=== PATIENT | male | born 1975 | race Caucasian/White ===

== ENCOUNTER 2018-07-01 07:24 | Day surgery (SDC) | payer SELFPAY ==
[2018-06-25 09:11] VITALS: BMI 23.4
[2018-07-01] MEDS ORDERED: Lidocaine PF 2% (5 ml) Inj (For Cardiac Arrhy) ONE ×3 (07:48→09:56)
[2018-07-01 07:57] LABS: BASO # 0.07 K/mm3 (0.0-2.0); BASO % 0.9 % (0.0-3.0); EOS # 0.2 (0.0-0.7); GRAN # 4.59 (1.4-6.5); GRAN % 62.3 % (50.0-68.0); HEMOGLOBIN 8.3 g/dL (14.0-18.0); LYMPH # 1.4 (1.2-3.4); LYMPH % 19.3 % (22.0-35.0); MEAN CELL VOLUME 81.8 fl (80.0-105.0); MEAN CORPUSCULAR HEMOGLOBIN 26.4 pg (25.0-35.0); MEAN CORPUSCULAR HGB CONC 32.3 g/dl (31.0-37.0); MONO # 1.1 (0.1-0.6); MONO % 15.5 % (1.0-6.0); RBC 3.14 10^6/uL (3.5-6.1); RED CELL DISTRIBUTION WIDTH 17.6 % (11.5-14.5); WHITE BLOOD COUNT 7.4 10^3/ul (4.5-11.0)
[2018-07-01 08:06] LABS: INR 1.45; PARTIAL THROMBOPLASTIN TIME 31.4 Seconds (25.1-36.5); PROTHROMBIN TIME 16.8 SECONDS (9.4-12.5)
[2018-07-01 08:07] LABS: BLOOD UREA NITROGEN 9 mg/dL (7-21); CALCIUM 10.5 mg/dL (8.4-10.5); GFR NON-AFRICAN AMERICAN > 60
[2018-07-01] MEDS ORDERED: Midazolam 2 MG/2 ML VIAL ONE ×3 (09:21→10:34)
[2018-07-01] MEDS ORDERED: Lidocaine 1% 5ml Abboject ONE (10:45)
[2018-07-01] MEDS ORDERED: Midazolam 2 MG/2 ML VIAL IVP ONE (11:14)
[2018-07-01 12:28] VITALS: RESP 20; TEMP 98.3
[2018-07-01] MEDS ORDERED: Oxycodone/Acetaminophen 5/325 mg Tab PO PRN (12:59)
[2018-07-01] MEDS ORDERED: Sodium Chloride 0.45% 1,000 ML IV SCH (13:00)
[2018-07-01 13:54] VITALS: BP 118/71; PULSE 95; O2SAT 99
--- NOTE | 2018-07-01 17:04 | CT ---
PROCEDURE: CT guided liver biopsy. HISTORY: Gastroesophageal junction adenocarcinoma. Liver Mets. PHYSICIAN(S): Christ Milan MD. TECHNIQUE: The relative risks and indications of the procedure were explained to the patient and his and consent obtained. The patient was placed supine on the CT scanner and preliminary images through the liver obtained. Conscious sedation and monitoring were provided throughout the procedure by a nurse. There are multiple low-attenuation lesions in both lobes liver. 4 cm lesion in the lateral segment of the left lobe was selected for biopsy. A subxyphoid approach was selected and the area prepped and draped in the usual sterile fashion. 1% Xylocaine was used to anesthetize the skin and soft tissues. A 17-gauge guiding needle was advanced into the 4 cm left lobe liver lesion. Its position was confirmed with CT. Using coaxial technique, multiple core biopsies were obtained. The postprocedure images show no evidence of significant hemorrhage. IMPRESSION: 1. CT-guided liver biopsy as described above.
--- NOTE | 2018-07-01 17:06 | VASCULAR ---
PROCEDURE: Ultrasound and fluoroscopic right internal jugular venous access port. CLINICAL HISTORY: Metastatic adenocarcinoma gastroesophageal junction.Venous port for chemotherapy. PHYSICIAN(S): Christ Milan M.D. TECHNIQUE: The relative risks and indications of the procedure were explained to the patient and his and consent obtained. The patient was placed supine on the arteriogram table and the neck and chest prepped and draped in the usual sterile fashion. Conscious sedation monitoring was provided throughout the procedure by a nurse. Antibiotics were given prior to the procedure. Under direct ultrasound guidance, the right internal jugular vein was punctured with a micro-puncture set. A 0.035 angled Glidewire was advanced into the IVC. A 4 cm incision was made below the right clavicle and the pocket blunted dissected. A 8 Irish single-lumen catheter, 20 cm long, was advanced to the SVC/RA junction. The catheter was trimmed and attached to the port. The port aspirates and injects easily. The port was placed in the pocket and closed in 2 layers. The patient tolerated the procedure well. IMPRESSION: Ultrasound and fluoroscopically placed right internal jugular venous access port.
== END 2018-07-01 15:50 | disposition home or self-care (01) ==
LOC: SDS 07:24
PROVIDERS: ATTEND Radiology Vascular & Interventional Radiology
DX: Z45.2 Encounter for adjustment and management of vascular access device (principal); C78.7 Secondary malignant neoplasm of liver and intrahepatic bile duct; C16.0 Malignant neoplasm of cardia; I73.9 Peripheral vascular disease, unspecified; F17.200 Nicotine dependence, unspecified, uncomplicated
CPT/HCPCS: 36415; 36561; 47000; 76937; 77001; 77012; 80048; 85025; 85610; 85730; 88307; 99152; C1769; C1788; J0690; J1644; J2250; J2405; J3010; J7030; J7120

== ENCOUNTER 2018-07-08 15:24 | Observation (INO) | payer SELFPAY ==
[2018-07-08 15:38] VITALS: BMI 24.1
--- NOTE | 2018-07-08 15:40 | ED PDOC ---
Arrival/HPI - General Time Seen by Provider: 07/08/18 15:36 Historian: Patient - History of Present Illness Narrative History of Present Illness (Text): 43yo male, with history of gastric cancer, currently undergoing chemotherapy, comes to Emergency room from chemotherapy as he was feeling lightheaded and generalized weakness. Patient states for the past couple days, he has been feeling exhausted, lightheaded and weak. Patient states he was notified b his PMD that his RBC count was low as well. Otherwise, he denies any bleeding, chest pain, shortness of breath or abdominal pain. Symptom Onset: Gradual Past Medical History - Provider Review Nursing Documentation Reviewed: Yes - Cardiac Hx Pacemaker: No - Neurological Hx Paralysis: No - Hematological/Oncological Hx Blood Transfusions: No - Musculoskeletal/Rheumatological Hx Musculoskeletal Disorders: No - Psychiatric Hx Emotional Abuse: No Hx Physical Abuse: No Hx Substance Use: No - Anesthesia Hx Anesthesia Reactions: No Hx Malignant Hyperthermia: No - Suicidal Assessment Feels Threatened In Home Enviroment: No Family/Social History - Physician Review Nursing Documentation Reviewed: Yes Family/Social History: No Known Family HX Hx Alcohol Use: Yes (SOCIAL) Hx Substance Use: No Allergies/Home Meds Allergies/Adverse Reactions: Allergies GLUE USED WITH PICC LINE Adverse Reaction (Uncoded 07/01/18 08:04) SWELLING BLISTER FORMED Home Medications: Home Meds Medication Instructions Recorded Confirmed Aspirin [Ecotrin] 81 mg PO DAILY 06/25/18 06/25/18 Fondaparinux Sodium [Arixtra] 7.5 mg SQ DAILY 06/25/18 06/25/18 Multivitamin [Daily Castillo] 1 tab PO DAILY 06/25/18 07/01/18 Review of Systems - Physician Review All systems were reviewed & negative as marked: Yes (per HPI) - Review of Systems Respiratory: absent: SOB Cardiovascular: absent: Chest Pain Gastrointestinal: absent: Abdominal Pain Neurological: Dizziness Hemo/Lymphatic: absent: Easy Bleeding Physical Exam - Physical Exam Narrative Physical Exam (Text): Gen: VS reviewed, alert, well developed, well nourished, nontoxic, mild distress. ENT: normal pharynx Eye: EOMI, PERRL Neck: no JVD, supple, no adenopathy CV: regular rate, regular rhythm, no rubs, no murmur, no gallops, S1, S2, pulses equal and strong. Port-a-cath noted to right upper chest Pulm: no distress, clear to auscultation, no wheeze, no rhonchi, breath sounds equal, no rales Abd: soft, nontender, no guarding, no rebound, no rigidity, normal bowel sounds Ext: no edema; normal cap refill Skin: good color, no rash, no cyanosis Psych: responds appropriately to questions, normal affect Neuro: oriented x 3, CN2-12 intact grossly, motor intact, sensation intact Medical Decision Making ED Course and Treatment: Impression: 43yo male, hx of gastric cancer, presents with lightheadedness, dizziness, known low RBC count Plan: -- Labs -- EKG -- CXR -- Reassess and disposition Progress Notes: 07/08/18 20:04 patient was seen for fatigue, lightheadedness and anemia. patient has a hx of gastric cancer currently on chemo. patient also has a current dvt in the right leg and anticoagulated. patient denies rectal bleeding or melena. patient to be admitted for symptomatic anemia and blood transfusion. hemoccult negative: positive control, batch [id number] 8R 05-26 - EKG Interpretation EKG Interpretation (Text): 07/08/18 16:03 1548: nsr at 82 bpm, nml qrs, nml axis, no acute sttw abn Interpreted by ED Physician: Yes - Scribe Statement The provider has reviewed the documentation as recorded by the Mary Butcher Provider Scribe Attestation: All medical record entries made by the Ольгаibvania were at my direction and personally dictated by me. I have reviewed the chart and agree that the record accurately reflects my personal performance of the history, physical exam, medical decision making, and the department course for this patient. I have also personally directed, reviewed, and agree with the discharge instructions and disposition.
--- NOTE | 2018-07-08 16:35 | RAD ---
Date of service: 07/08/2018 HISTORY: near syncope COMPARISON: 06/27/2018 TECHNIQUE: Chest PA and lateral FINDINGS: LUNGS: No active pulmonary disease. PLEURA: No significant pleural effusion identified. No pneumothorax apparent. CARDIOVASCULAR: Normal. OSSEOUS STRUCTURES: No significant abnormalities. VISUALIZED UPPER ABDOMEN: Normal. OTHER FINDINGS: None. IMPRESSION: No active disease.
[2018-07-08 17:19] LABS: ALB/GLOB RATIO 0.9 (1.1-1.8); ALBUMIN 3.3 g/dL (3.0-4.8); ALT/SGPT 41 U/L (7-56); AST/SGOT 63 U/L (17-59); BLOOD UREA NITROGEN 13 mg/dL (7-21); CALCIUM 9.3 mg/dL (8.4-10.5); GFR NON-AFRICAN AMERICAN > 60
[2018-07-08 17:24] LABS: BASO # 0.08 K/mm3 (0.0-2.0); BASO % 0.6 % (0.0-3.0); GRAN # 10.43 (1.4-6.5); GRAN % 82.9 % (50.0-68.0); LYMPH % 8.2 % (22.0-35.0); MEAN CELL VOLUME 81.3 fl (80.0-105.0); MEAN CORPUSCULAR HEMOGLOBIN 26.3 pg (25.0-35.0); MEAN CORPUSCULAR HGB CONC 32.4 g/dl (31.0-37.0); MEAN PLATELET VOLUME 9.7 fl (7.0-11.0); MONO # 1.1 (0.1-0.6); MONO % 8.3 % (1.0-6.0); RBC 2.62 10^6/uL (3.5-6.1); RED CELL DISTRIBUTION WIDTH 16.9 % (11.5-14.5); WHITE BLOOD COUNT 12.6 10^3/ul (4.5-11.0)
[2018-07-08 17:32] LABS: HEMOGLOBIN 6.9 g/dL (14.0-18.0)
[2018-07-08 20:33] VITALS: O2SAT 99
--- NOTE | 2018-07-08 21:15 | CARD ---
APPROVED REPORT Date of service: 07/08/2018 EKG Measurement Heart [id number] <Conclusion> Normal sinus rhythm Nonspecific T wave abnormality Abnormal ECG
[2018-07-09 05:53] LABS: MEAN CELL VOLUME 81.1 fl (80.0-105.0); MEAN CORPUSCULAR HEMOGLOBIN 26.7 pg (25.0-35.0); MEAN PLATELET VOLUME 9.5 fl (7.0-11.0); RBC 3.33 10^6/uL (3.5-6.1); RED CELL DISTRIBUTION WIDTH 16.4 % (11.5-14.5); WHITE BLOOD COUNT 12.9 10^3/ul (4.5-11.0)
[2018-07-09 05:59] LABS: HEMOGLOBIN 8.9 g/dL (14.0-18.0)
[2018-07-09] MEDS ORDERED: ONDANSETRON IV ONE (06:00)
[2018-07-09] MEDS ORDERED: [UNRECOGNIZED DRUG - OTHER] IV ONE (06:00)
[2018-07-09] MEDS ORDERED: FAMOTIDINE IV ONE (06:00)
[2018-07-09] MEDS ORDERED: DIPHENHYDRAMINE IV ONE (06:00)
[2018-07-09 08:47] VITALS: BP 118/77; PULSE 77; RESP 20; TEMP 97.3
--- NOTE | 2018-07-09 11:37 | CP.PCM.HP ---
History of Present Illness - History of Present Illness History of Present Illness: Hema Dominguez PGY2 Heme/Onc Progress Note for Dr. Gomez Mr. 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 The patient is undergoing chemo therapy with Dr. Gomez currently. During an office visit, the patient felt lightheaded and complained of weakness, and was transferred to the [facility] [place] [facility] ED. The patient denies any active bleeding, shortness of breath or abdominal pain. In the ED, his hemoglobin was noted to be 6.9, and Dr. Gomez requested that he be transfused with 2 units of PRBCs. 12 point ROS was reviewed and is otherwise unremarkable. Present on Admission - Present on Admission Any Indicators Present on Admission: No Review of Systems - Review of Systems All systems: reviewed and no additional remarkable complaints except (as per HPI) Past Patient History - Past Social History Smoking Status: Former Smoker Alcohol: None Drugs: Denies - CARDIAC Hx Cardiac Disorders: No - PULMONARY Hx Respiratory Disorders: Yes Hx Asthma: Yes (as child) - NEUROLOGICAL Hx Neurological Disorder: No - HEENT Hx HEENT Problems: No - RENAL Hx Chronic Kidney Disease: No - ENDOCRINE/METABOLIC Hx Endocrine Disorders: No - HEMATOLOGICAL/ONCOLOGICAL Hx Blood Disorders: Yes Hx Anemia: Yes Hx Cancer: Yes (gastroesophageal ca) Hx Chemotherapy: Yes Hx Metastesis: Yes (liver) Other/Comment: DVT - INTEGUMENTARY Hx Dermatological Problems: No - MUSCULOSKELETAL/RHEUMATOLOGICAL Hx Musculoskeletal Disorders: No - GASTROINTESTINAL Hx Gastrointestinal Disorders: Yes (gastric ca) Hx Gastroesophageal Reflux: Yes - GENITOURINARY/GYNECOLOGICAL Hx Genitourinary Disorders: No - PSYCHIATRIC Hx Psychophysiologic Disorder: No - SURGICAL HISTORY Hx Surgeries: Yes (biopsy) - ANESTHESIA Hx Anesthesia Reactions: No Hx Malignant Hyperthermia: No Meds Allergies/Adverse Reactions: Allergies Allergy/AdvReac Type Severity Reaction Status Date / Time GLUE USED WITH PICC LINE AdvReac SWELLING Uncoded 07/01/18 08:04 Physical Exam - Constitutional Appears: Well, Non-toxic, No Acute Distress - Head Exam Head Exam: NORMAL INSPECTION - Eye Exam Eye Exam: EOMI, Normal appearance. absent: Scleral icterus - ENT Exam ENT Exam: Normal Exam - Neck Exam Neck exam: Positive for: Normal Inspection - Respiratory Exam Respiratory Exam: Clear to Auscultation Bilateral, NORMAL BREATHING PATTERN - Cardiovascular Exam Cardiovascular Exam: RRR, +S1, +S2 - GI/Abdominal Exam GI & Abdominal Exam: Soft. absent: Distended, Organomegaly, Tenderness - Extremities Exam Extremities exam: Positive for: normal inspection - Back Exam Back exam: NORMAL INSPECTION - Neurological Exam Neurological exam: Alert, CN II-XII Intact, Oriented x3 - Psychiatric Exam Psychiatric exam: Normal Mood - Skin Skin Exam: Warm Results - Vital Signs Recent Vital Signs: Last Vital Signs Temp 97.3 F L 07/09/18 06:00 Pulse 77 07/09/18 06:00 Resp 20 07/09/18 06:00 BP 118/77 07/09/18 06:00 Pulse Ox 99 07/09/18 06:00 - Labs Result Diagrams: 07/09/18 05:35 07/08/18 16:46 Labs: Laboratory Results - last 24 hr 07/08/18 07/08/18 07/08/18 16:46 16:46 16:46 WBC 12.6 H D RBC 2.62 L Hgb 6.9 L* Hct 21.3 L MCV 81.3 MCH 26.3 MCHC 32.4 RDW 16.9 H Plt Count 368 MPV 9.7 Gran % 82.9 H Lymph % (Auto) 8.2 L [place] % (Auto) 8.3 H Eos % (Auto) 0.0 L Baso % (Auto) 0.6 Gran # 10.43 H Lymph # (Auto) 1.0 L [place] # (Auto) 1.1 H Eos # (Auto) 0.0 Baso # (Auto) 0.08 Sodium 137 Potassium 4.2 Chloride 104 Carbon Dioxide 23 Anion Gap 14 BUN 13 Creatinine 0.6 L Est GFR ( Amer) > 60 Est GFR (Non-Af Amer) > 60 Random Glucose 211 H Calcium 9.3 Magnesium 2.3 H Total Bilirubin 0.4 AST 63 H D ALT 41 Alkaline Phosphatase 384 H Total Protein 7.0 Albumin 3.3 Globulin 3.7 Albumin/Globulin Ratio 0.9 L Blood Type AB POSITIVE Blood Type Confirm Antibody Screen Negative Crossmatch See Detail BBK History Checked No verified bt 07/08/18 07/09/18 18:09 05:35 WBC 12.9 H RBC 3.33 L Hgb 8.9 L D Hct 27.0 L MCV 81.1 MCH 26.7 MCHC 33.0 RDW 16.4 H Plt Count 289 MPV 9.5 Gran % Lymph % (Auto) [place] % (Auto) Eos % (Auto) Baso % (Auto) Gran # Lymph # (Auto) [place] # (Auto) Eos # (Auto) Baso # (Auto) Sodium Potassium Chloride Carbon Dioxide Anion Gap BUN Creatinine Est GFR ( Amer) Est GFR (Non-Af Amer) Random Glucose Calcium Magnesium Total Bilirubin AST ALT Alkaline Phosphatase Total Protein Albumin Globulin Albumin/Globulin Ratio Blood Type Blood Type Confirm AB POSITIVE Antibody Screen Crossmatch BBK History Checked Assessment & Plan - Assessment and Plan (Free Text) Assessment: 43-year-old male with a PMH of gastroesophageal CA with metastases to the liver who presented to the ED from oncology clinic for symptoms of weakness and fatigue times 2 days. Anemia is noted on the admission labs. Patient is admitted for observation Type and cross ordered 2 units PRBC to be transfused Pepcid, Benadryl and Zofran pre-infusion Monitor vital signs Follow-up CBC in a.m. Observe patient overnight Regular diet Case was reviewed and discussed with attending, Dr. Jason Dominguez PGY2
--- NOTE | 2018-07-09 11:37 | CP.PCM.DIS ---
Provider - Provider Date of Admission: 07/08/18 18:26 Attending physician: Joshua Gomez MD Primary care physician: Dallin Gomez MD Time Spent in preparation of Discharge (in minutes): 35 Hospital Course - Lab Results Lab Results: Most Recent Lab Values WBC 12.9 10^3/ul (4.5-11.0) H 07/09/18 05:35 RBC 3.33 10^6/uL (3.5-6.1) L 07/09/18 05:35 Hgb 8.9 g/dL (14.0-18.0) L D 07/09/18 05:35 Hct 27.0 % (42.0-52.0) L 07/09/18 05:35 MCV 81.1 fl (80.0-105.0) 07/09/18 05:35 MCH 26.7 pg (25.0-35.0) 07/09/18 05:35 MCHC 33.0 g/dl (31.0-37.0) 07/09/18 05:35 RDW 16.4 % (11.5-14.5) H 07/09/18 05:35 Plt Count 289 10^3/uL (120.0-450.0) 07/09/18 05:35 MPV 9.5 fl (7.0-11.0) 07/09/18 05:35 Gran % 82.9 % (50.0-68.0) H 07/08/18 16:46 Lymph % (Auto) 8.2 % (22.0-35.0) L 07/08/18 16:46 [place] % (Auto) 8.3 % (1.0-6.0) H 07/08/18 16:46 Eos % (Auto) 0.0 % (1.5-5.0) L 07/08/18 16:46 Baso % (Auto) 0.6 % (0.0-3.0) 07/08/18 16:46 Gran # 10.43 (1.4-6.5) H 07/08/18 16:46 Lymph # (Auto) 1.0 (1.2-3.4) L 07/08/18 16:46 [place] # (Auto) 1.1 (0.1-0.6) H 07/08/18 16:46 Eos # (Auto) 0.0 (0.0-0.7) 07/08/18 16:46 Baso # (Auto) 0.08 K/mm3 (0.0-2.0) 07/08/18 16:46 Sodium 137 mmol/L (132-148) 07/08/18 16:46 Potassium 4.2 mmol/L (3.6-5.0) 07/08/18 16:46 Chloride 104 mmol/L (98-107) 07/08/18 16:46 Carbon Dioxide 23 mmol/L (21-33) 07/08/18 16:46 Anion Gap 14 (10-20) 07/08/18 16:46 BUN 13 mg/dL (7-21) 07/08/18 16:46 Creatinine 0.6 mg/dl (0.8-1.5) L 07/08/18 16:46 Est GFR ( Amer) > 60 07/08/18 16:46 Est GFR (Non-Af Amer) > 60 07/08/18 16:46 Random Glucose 211 mg/dL (70-110) H 07/08/18 16:46 Calcium 9.3 mg/dL (8.4-10.5) 07/08/18 16:46 Magnesium 2.3 mg/dL (1.7-2.2) H 07/08/18 16:46 Total Bilirubin 0.4 mg/dL (0.2-1.3) 07/08/18 16:46 AST 63 U/L (17-59) H D 07/08/18 16:46 ALT 41 U/L (7-56) 07/08/18 16:46 Alkaline Phosphatase 384 U/L (38-126) H 07/08/18 16:46 Total Protein 7.0 g/dL (5.8-8.3) 07/08/18 16:46 Albumin 3.3 g/dL (3.0-4.8) 07/08/18 16:46 Globulin 3.7 gm/dL 07/08/18 16:46 Albumin/Globulin Ratio 0.9 (1.1-1.8) L 07/08/18 16:46 Blood Type AB POSITIVE 07/08/18 16:46 Blood Type Confirm AB POSITIVE 07/08/18 18:09 Antibody Screen Negative 07/08/18 16:46 Crossmatch See Detail 07/08/18 16:46 BBK History Checked No verified bt 07/08/18 16:46 - Hospital Course Hospital Course: Mr. 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 The patient is undergoing chemo therapy with Dr. Gomez currently. During an office visit, the patient felt lightheaded and complained of weakness, and was transferred to the [facility] [place] ED. The patient denies any active bleeding, shortness of breath or abdominal pain. In the ED, his hemoglobin was noted to be 6.9, and Dr. Gomez requested that he be transfused with 2 units of PRBCs. The patient was admitted for observation. He was typed and crossed, pre-medicated and transfused 2u PRBCs. In AM, Hgb had increased sufficiently and patient was feeling much better. Patient was instructed to contact Dr. Gomez on night of discharge, and go to clinic on 07/11/18 to see him. Patient is medically optimized for discharge. Discharge Exam - Head Exam Head Exam: NORMAL INSPECTION - Eye Exam Eye Exam: Normal appearance, PERRL - ENT Exam ENT Exam: Mucous Membranes Moist - Neck Exam Neck exam: Full Rom - Respiratory Exam Respiratory Exam: NORMAL BREATHING PATTERN, UNREMARKABLE - Cardiovascular Exam Cardiovascular Exam: RRR, +S1, +S2 - GI/Abdominal Exam GI & Abdominal Exam: Normal Bowel Sounds, Soft, Unremarkable. absent: Distended, Tenderness - Extremities Exam Extremities exam: full ROM - Back Exam Back exam: NORMAL INSPECTION - Neurological Exam Neurological exam: Alert, Oriented x3 - Psychiatric Exam Psychiatric exam: Normal Mood - Skin Skin Exam: Warm Discharge Plan - Follow Up Plan Condition: GOOD Disposition: HOME/ ROUTINE Instructions: Anemia of Chronic Disease Additional Instructions: - please see Dr. Gomez in office on Saturday07/11/18 - please call Dr. Jason blanton and let him know how you are doing - if you continue to experience shortness of breath or weakness, please contact Dr. Gomez or return to ER for evaluation Referrals: Dallin Gomez MD [Primary Care Provider] -
== END 2018-07-09 10:43 | disposition home or self-care (01) ==
LOC: ED 15:24 → INTOOBSV 18:26 → ERH 18:26 → 3RSO 20:49
PROVIDERS: ADMIT Student in an Organized Health Care Education/Training Program; ATTEND Student in an Organized Health Care Education/Training Program
DX: D63.8 Anemia in other chronic diseases classified elsewhere (principal); C16.0 Malignant neoplasm of cardia; C78.7 Secondary malignant neoplasm of liver and intrahepatic bile duct; K21.9 Gastro-esophageal reflux disease without esophagitis; Z79.82 Long term (current) use of aspirin; Z87.09 Personal history of other diseases of the respiratory system; Z87.891 Personal history of nicotine dependence; Z91.048 Other nonmedicinal substance allergy status
CPT/HCPCS: 36415; 36430; 71046; 80053; 83735; 85025; 85027; 86850; 86900; 86920; 93005; 99285; G0378; J1200; J2405; P9016

== ENCOUNTER 2018-08-06 12:21 | Day surgery (SDC) | payer SELFPAY ==
[2018-08-05 14:47] VITALS: BMI 22.1
[2018-08-06 13:04] LABS: EOS # 0.1 (0.0-0.7); EOS % 0.6 % (1.5-5.0); HEMOGLOBIN 7.6 g/dL (14.0-18.0); LYMPH # 2.4 (1.2-3.4); LYMPH % 14.8 % (22.0-35.0); MEAN CELL VOLUME 83.3 fl (80.0-105.0); MEAN CORPUSCULAR HEMOGLOBIN 26.4 pg (25.0-35.0); MEAN CORPUSCULAR HGB CONC 31.7 g/dl (31.0-37.0); MEAN PLATELET VOLUME 10.3 fl (7.0-11.0); MONO # 2.1 (0.1-0.6); PLATELET COUNT 195 10^3/uL (120.0-450.0); RBC 2.88 10^6/uL (3.5-6.1); RED CELL DISTRIBUTION WIDTH 18.6 % (11.5-14.5); WHITE BLOOD COUNT 16.1 10^3/uL (4.5-11.0)
[2018-08-06 13:17] LABS: BLOOD UREA NITROGEN 16 mg/dL (7-21); CALCIUM 9.5 mg/dL (8.4-10.5); GFR NON-AFRICAN AMERICAN > 60
[2018-08-06 13:38] LABS: INR 1.25; PROTHROMBIN TIME 14.4 SECONDS (9.4-12.5)
[2018-08-06] MEDS ORDERED: Iodixanol 320 MG/ML 100 ML BOTTLE IV ONE (13:55)
[2018-08-06] MEDS ORDERED: Lidocaine 2% Inj (20ml) ONE (13:55)
[2018-08-06] MEDS ORDERED: Iodixanol 320 MG/ML 200 ML BOTTLE IV ONE (14:09)
[2018-08-06] MEDS ORDERED: Midazolam 2 MG/2 ML VIAL ONE ×2 (14:39→14:43)
[2018-08-06] MEDS ORDERED: Oxycodone/Acetaminophen 5/325 mg Tab PO PRN (15:28)
[2018-08-06] MEDS ORDERED: Sodium Chloride 0.45% 1,000 ML IV SCH (15:30)
[2018-08-06 15:34] VITALS: RESP 20
[2018-08-06 16:15] VITALS: TEMP 97.6
[2018-08-06 16:42] VITALS: BP 116/75; PULSE 92; O2SAT 98
--- NOTE | 2018-08-06 19:32 | VASCULAR ---
PROCEDURE: IVC Filter placement HISTORY: Metastatic adenocarcinoma GE junction. Hypercoagulable. Progressive iliofemoral DVT on anticoagulation. Needs IVC filter PHYSICIAN(S): Christ Milan MD. TECHNIQUE: The relative risks and indications of the procedure were explained to the patient and his [id number] and consent obtained. The patient was placed supine on the arteriogram table the right neck prepped and draped usual sterile fashion. Conscious sedation and monitoring were provided throughout the procedure by a nurse. To the extensive iliofemoral DVT bilaterally, the right internal jugular vein was selected for placement. Under ultrasound guidance, the right internal jugular vein was punctured with a micropuncture set. A 5 American sheath was placed. A Glidewire was advanced through the heart and placed in the IVC at the confluence. A 5 American flush catheter was placed in the IV C. A PA DSA cavogram was performed. The renal veins were carefully marked. Exchange is made for a support guidewire. A retrievable IVC filter was deployed in the infrarenal IVC at the level of L2-3. A post deployment cavagram was performed. FINDINGS: There is a thrombus protruding into the IVC confluence from the right common iliac vein. The remainder of the IVC is normal in appearance. IMPRESSION: 1. IVC filter placement. 2. Large thrombus protruding from the right common iliac vein into the IVC confluence
== END 2018-08-06 17:40 | disposition home or self-care (01) ==
LOC: SDSVAS 12:21
PROVIDERS: ATTEND Radiology Vascular & Interventional Radiology
DX: I82.422 Acute embolism and thrombosis of left iliac vein (principal); C80.1 Malignant (primary) neoplasm, unspecified; Z87.891 Personal history of nicotine dependence
CPT/HCPCS: 36415; 37191; 80048; 85025; 85610; 85730; 99152; C1760; C1769 ×2; C1880; C1887; C1894; J0690; J1644; J2250; J2405; J3010; J7030; Q9966; Q9967

== ENCOUNTER 2018-10-08 15:46 | Outpatient (CLI) | payer SELFPAY | END 2018-10-08 15:47 | disposition home or self-care (01) | LOC: LAB 15:46 ==

== ENCOUNTER 2018-10-10 14:59 | Outpatient (CLI) | payer SELFPAY | END 2018-10-10 15:00 | disposition home or self-care (01) | LOC: OPLAB 14:59 ==

== ENCOUNTER 2018-10-13 16:05 | Outpatient (CLI) | payer SELFPAY | END 2018-10-13 16:06 | disposition home or self-care (01) | LOC: LAB 16:05 ==

== ENCOUNTER 2018-10-14 13:00 | Outpatient (CLI) | payer SELFPAY | END 2018-10-14 13:01 | disposition home or self-care (01) | LOC: LAB 13:00 ==

== ENCOUNTER 2018-10-20 17:07 | Outpatient (CLI) | payer SELFPAY | END 2018-10-20 17:08 | disposition home or self-care (01) | LOC: LAB 17:07 ==

== ENCOUNTER 2018-10-22 19:33 | Emergency (ER) | payer OTHER ==
--- NOTE | 2018-10-22 19:45 | ED PDOC ---
Arrival/HPI - General Time Seen by Provider: 10/22/18 19:41 Historian: Patient - History of Present Illness Narrative History of Present Illness (Text): 10/22/18 19:45 A 43 year old male, whose past medical history includes adenocarcinoma of the gastroesophageal junction, with metastasis to liver and HER0-2 positive, presebnting with shortness of breath. Reports that he was anemic to <7 so his oncologist sent his to the emergency department . Reports shortness of breath and dyspnea on exertion, consistent with prior episodes of anemia. On neupogen. Last chemo 1 week ago. Reports that he follows up wt Dr. Gomez. Reports that he takes lovenox for b/l DVT and has IVC filter. Denies new abdominal pain. 10/22/18 20:11 Past Medical History - Provider Review Nursing Documentation Reviewed: Yes - Cardiac Hx Pacemaker: No - Pulmonary Hx Respiratory Disorders: Yes Hx Asthma: Yes (as child) - Neurological Hx Paralysis: No - HEENT Hx HEENT Disorder: No - Renal Hx Renal Disorder: No - Endocrine/Metabolic Hx Endocrine Disorders: No - Hematological/Oncological Hx Blood Transfusions: No - Integumentary Hx Dermatological Disorder: No - Musculoskeletal/Rheumatological Hx Musculoskeletal Disorders: No - Gastrointestinal Hx Gastrointestinal Disorders: Yes (gastric ca) Hx Gastroesophageal Reflux: Yes - Genitourinary/Gynecological Hx Genitourinary Disorders: No - Psychiatric Hx Emotional Abuse: No Hx Physical Abuse: No Hx Substance Use: No - Surgical History Hx Inguinal Hernia Repair: Yes (bilateral hernia repair) - Anesthesia Hx Anesthesia Reactions: No Hx Malignant Hyperthermia: No - Suicidal Assessment Feels Threatened In Home Enviroment: No Family/Social History - Physician Review Nursing Documentation Reviewed: Yes Family/Social History: No Known Family HX Smoking Status: Former Smoker Hx Alcohol Use: Yes (SOCIAL-NONE LATELY) Hx Substance Use: No Allergies/Home Meds Allergies/Adverse Reactions: Allergies GLUE USED WITH PICC LINE Adverse Reaction (Uncoded 10/22/18 19:55) SWELLING BLISTER FORMED Home Medications: Home Meds Medication Instructions Recorded Confirmed Multivitamin [Daily Castillo] 1 tab PO DAILY 06/25/18 10/22/18 Enoxaparin [Lovenox] 70 mg SQ BID 08/05/18 10/22/18 Oxycodone HCl/Acetaminophen 1 tab PO PRN PRN 08/05/18 10/22/18 [Acetaminophen-Oxycodone 325 mg-5 mg] Pantoprazole [Protonix] 40 mg PO DAILY 08/05/18 10/22/18 Pregabalin [Lyrica] 25 mg PO BID 08/05/18 10/22/18 Acetaminophen [Tylenol] 650 mg PO PRN PRN 10/22/18 10/22/18 Review of Systems - Physician Review All systems were reviewed & negative as marked: Yes - Review of Systems Constitutional: absent: Fevers, Night Sweats Eyes: absent: Vision Changes Respiratory: SOB Cardiovascular: absent: Chest Pain Gastrointestinal: absent: Abdominal Pain, Diarrhea, Nausea, Vomiting Genitourinary Male: absent: Dysuria, Hematuria Musculoskeletal: absent: Myalgias Skin: absent: Rash Neurological: absent: Headache, Dizziness Psychiatric: absent: Anxiety Physical Exam Temperature: Afebrile Blood Pressure: Normal Pulse: Regular Respiratory Rate: Normal Appearance: Positive for: Cachectic, Other (pale) Pain Distress: None Mental Status: Positive for: Alert and Oriented X 3 - Systems Exam Head: Present: Atraumatic, Normocephalic Pupils: Present: PERRL Extroacular Muscles: Present: EOMI Conjunctiva: Present: Normal Mouth: Present: Moist Mucous Membranes Neck: Present: Normal Range of Motion Respiratory/Chest: Present: Clear to Auscultation, Good Air Exchange, Other (mediport to R chest). No: Respiratory Distress Cardiovascular: Present: Normal S1, S2, Tachycardic. No: Murmurs Abdomen: No: Tenderness, Distention Upper Extremity: Present: Normal Inspection Lower Extremity: Present: Edema, Swelling (left lower extremity) Neurological: Present: GCS=15, CN II-XII Intact, Speech Normal, Gait Normal Skin: Present: Pale Psychiatric: Present: Alert, Oriented x 3, Normal Insight, Normal Concentration Medical Decision Making ED Course and Treatment: 10/22/18 19:46 Impression: 43 year old male with shortness of breath and anemia. Plan: -- Labs -- Chest X-ray -- Reassess and disposition Progress Notes: 10/22/18 20:18 EKG shows sinus tachycardia at 119bpm. Cxray negative as read by me. Labs ordered. Spoke to Dr. Gomez who is requesting observation under his name for transfusion x 2 units., - Scribe Statement The provider has reviewed the documentation as recorded by the Mary Webb Provider Scribe Attestation: All medical record entries made by the Mary were at my direction and personally dictated by me. I have reviewed the chart and agree that the record accurately reflects my personal performance of the history, physical exam, medical decision making, and the department course for this patient. I have also personally directed, reviewed, and agree with the discharge instructions and disposition. Disposition/Present on Arrival - Present on Arrival Any Indicators Present on Arrival: No History of DVT/PE: Yes History of Uncontrolled Diabetes: No Urinary Catheter: No History Surgical Site Infection Following: None - Disposition Have Diagnosis and Disposition been Completed?: Yes Diagnosis: Anemia, Metastatic cancer Disposition: HOSPITALIZED Disposition Time: 20:13 Patient Plan: Observation Condition: FAIR
[2018-10-22 19:48] VITALS: BMI 20.9
[2018-10-22] MEDS ORDERED: Sodium Chloride 0.9% 500 ML IV STA (19:51)
[2018-10-22 21:03] LABS: LYMPH # 1.5 (1.2-3.4); LYMPH % 4.4 % (22.0-35.0); MEAN CELL VOLUME 92.1 fl (80.0-105.0); MEAN CORPUSCULAR HEMOGLOBIN 27.6 pg (25.0-35.0); MEAN CORPUSCULAR HGB CONC 29.9 g/dl (31.0-37.0); MONO # 1.6 (0.1-0.6); MONO % 4.5 % (1.0-6.0); PLATELET COUNT 85 10^3/uL (120.0-450.0); RBC 2.14 10^6/uL (3.5-6.1); RED CELL DISTRIBUTION WIDTH 21.8 % (11.5-14.5)
[2018-10-22 21:04] LABS: ALB/GLOB RATIO 0.9 (1.1-1.8); ALBUMIN 2.7 g/dL (3.0-4.8); ALT/SGPT 49 U/L (7-56); AST/SGOT 103 U/L (17-59); BLOOD UREA NITROGEN 17 mg/dL (7-21); CALCIUM 7.9 mg/dL (8.4-10.5); GFR NON-AFRICAN AMERICAN > 60
[2018-10-22 21:07] LABS: HEMOGLOBIN 5.9 g/dL (14.0-18.0); WHITE BLOOD COUNT 34.4 10^3/uL (4.5-11.0)
[2018-10-22 21:20] LABS: INR 1.4; PARTIAL THROMBOPLASTIN TIME 33.8 Seconds (25.1-36.5); PROTHROMBIN TIME 16.1 SECONDS (9.4-12.5)
[2018-10-22 21:40] LABS: TROPONIN I 0.14 ng/mL
[2018-10-22 22:03] LABS: BAND 5 % (0-2); LYMPHOCYTE 2 % (22.0-35.0); METAMYELOCYTE 6 %; MONOCYTE 3 % (1.0-6.0); MYELOCYTE 3 %; NEUTROPHIL 81 % (50.0-70.0)
[2018-10-22 22:04] LABS: PLATELET ESTIMATE NORMAL (NORMAL)
[2018-10-22 22:13] LABS: ANISOCYTOSIS 1+; MICROCYTOSIS 1+; OVALOCYTES SLIGHT; SPHEROCYTE 1+
[2018-10-23] MEDS ORDERED: HYDROmorphone 2 mg/ml ISec IVP PRN (06:13)
--- NOTE | 2018-10-23 08:48 | RAD ---
Date of service: 10/22/2018 HISTORY: anemia COMPARISON: Chest radiographs 07/28/2018. FINDINGS: LUNGS: Slightly diminished pulmonary volume. No acute infiltrate bilaterally. Right MediPort unchanged in position. PLEURA: No significant pleural effusion identified, no pneumothorax apparent. CARDIOVASCULAR: No aortic atherosclerotic calcification present. Normal cardiac size. No pulmonary vascular congestion. OSSEOUS STRUCTURES: No significant abnormalities. VISUALIZED UPPER ABDOMEN: Normal. OTHER FINDINGS: None. IMPRESSION: Diminished inspiratory pulmonary effort. No acute infiltrates or pleural effusions bilaterally. No pulmonary vascular congestion.
--- NOTE | 2018-10-23 09:38 | CP.PCM.HP ---
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 Reports that he was anemic to <7 so his oncologist sent his to the emergency department . Reports shortness of breath and dyspnea on exertion, consistent with prior episodes of anemia. On neupogen. Last chemo 1 week ago. Reports that he follows up wtih Dr. Gomez. Reports that he takes lovenox for b/l DVT and has IVC filter. Denies new abdominal pain. PMHx: adenocarcinoma of the gastroesophageal junction that is metastatic to the liver and HER-2 positive PSHx: denies Allergies: Glue SocialHx: smokes 2 cigars per week; drinks 2 alcohol drinks per week; denies illicit drugs; lives with FamHx: denies Present on Admission - Present on Admission Any Indicators Present on Admission: No Review of Systems - Review of Systems All systems: reviewed and no additional remarkable complaints except (as stated in HPI) Past Patient History - Infectious Disease Hx of Infectious Diseases: None - Past Social History Smoking Status: Former Smoker - CARDIAC Hx Pacemaker: No - PULMONARY Hx Respiratory Disorders: Yes Hx Asthma: Yes (as child) - NEUROLOGICAL Hx Paralysis: No - HEENT Hx HEENT Problems: No - RENAL Hx Chronic Kidney Disease: No - ENDOCRINE/METABOLIC Hx Endocrine Disorders: No - HEMATOLOGICAL/ONCOLOGICAL Hx Blood Transfusions: No - INTEGUMENTARY Hx Dermatological Problems: No - MUSCULOSKELETAL/RHEUMATOLOGICAL Hx Musculoskeletal Disorders: No - GASTROINTESTINAL Hx Gastrointestinal Disorders: Yes (gastric ca) Hx Gastroesophageal Reflux: Yes - GENITOURINARY/GYNECOLOGICAL Hx Genitourinary Disorders: No - PSYCHIATRIC Hx Emotional Abuse: No Hx Physical Abuse: No Hx Substance Use: No - SURGICAL HISTORY Hx Surgeries: Yes - ANESTHESIA Hx Anesthesia Reactions: No Hx Malignant Hyperthermia: No Meds Allergies/Adverse Reactions: Allergies Allergy/AdvReac Type Severity Reaction Status Date / Time GLUE USED WITH PICC LINE AdvReac SWELLING Uncoded 10/22/18 19:55 Physical Exam - Constitutional Appears: Well, Non-toxic, No Acute Distress - Head Exam Head Exam: ATRAUMATIC, NORMAL INSPECTION - Eye Exam Eye Exam: EOMI, Normal appearance, PERRL. absent: Scleral icterus - ENT Exam ENT Exam: Mucous Membranes Moist - Neck Exam Neck exam: Positive for: Normal Inspection. Negative for: Tenderness - Respiratory Exam Respiratory Exam: Clear to Auscultation Bilateral, NORMAL BREATHING PATTERN. absent: Rales, Rhonchi, Wheezes - Cardiovascular Exam Cardiovascular Exam: REGULAR RHYTHM, +S1, +S2. absent: JVD - GI/Abdominal Exam GI & Abdominal Exam: Normal Bowel Sounds, Soft. absent: Distended, Firm, Guarding, Tenderness - Extremities Exam Extremities exam: Positive for: normal inspection - Back Exam Back exam: NORMAL INSPECTION - Neurological Exam Neurological exam: Alert, Oriented x3 - Psychiatric Exam Psychiatric exam: Normal Affect, Normal Mood - Skin Skin Exam: Dry, Intact, Normal Color, Warm Results - Vital Signs Recent Vital Signs: Last Vital Signs Temp 98.0 F 10/23/18 04:58 Pulse 94 H 10/23/18 04:58 Resp 16 10/23/18 04:58 BP 127/72 10/23/18 04:58 Pulse Ox 97 10/22/18 21:47 - Labs Result Diagrams: 10/23/18 10:40 10/22/18 20:40 Labs: Laboratory Results - last 24 hr 10/22/18 10/22/18 10/22/18 20:40 20:40 20:40 WBC 34.4 H* D RBC 2.14 L Hgb 5.9 L* Hct 19.7 L* MCV 92.1 D MCH 27.6 MCHC 29.9 L RDW 21.8 H Plt Count 85 L Lymph % (Auto) 4.4 L Sullivan % (Auto) 4.5 Eos % (Auto) 0.0 L Lymph # (Auto) 1.5 Sullivan # (Auto) 1.6 H Eos # (Auto) 0.0 Neutrophils % (Manual) 81 H Band Neutrophils % 5 H Lymphocytes % (Manual) 2 L Monocytes % (Manual) 3 Metamyelocytes % 6 Myelocytes % 3 Platelet Evaluation Normal Anisocytosis (manual) 1+ Microcytosis (manual) 1+ Spherocytes 1+ Ovalocytes Slight PT 16.1 H INR 1.40 APTT 33.8 Sodium 131 L Potassium 4.0 Chloride 100 Carbon Dioxide 24 Anion Gap 11 BUN 17 Creatinine 0.8 Est GFR ( Amer) > 60 Est GFR (Non-Af Amer) > 60 Random Glucose 165 H Calcium 7.9 L Phosphorus 2.4 L Magnesium 2.5 H Total Bilirubin 0.4 AST 103 H D ALT 49 Alkaline Phosphatase 1249 H Troponin I 0.14 H* Total Protein 5.8 Albumin 2.7 L Globulin 3.1 Albumin/Globulin Ratio 0.9 L Blood Type Antibody Screen Crossmatch BBK History Checked 10/22/18 10/23/18 20:45 06:30 WBC RBC Hgb Hct MCV MCH MCHC RDW Plt Count Lymph % (Auto) Sullivan % (Auto) Eos % (Auto) Lymph # (Auto) Sullivan # (Auto) Eos # (Auto) Neutrophils % (Manual) Band Neutrophils % Lymphocytes % (Manual) Monocytes % (Manual) Metamyelocytes % Myelocytes % Platelet Evaluation Anisocytosis (manual) Microcytosis (manual) Spherocytes Ovalocytes PT INR APTT Sodium Potassium Chloride Carbon Dioxide Anion Gap BUN Creatinine Est GFR ( Amer) Est GFR (Non-Af Amer) Random Glucose Calcium Phosphorus Magnesium Total Bilirubin AST ALT Alkaline Phosphatase Troponin I 1.16 H* D Total Protein Albumin Globulin Albumin/Globulin Ratio Blood Type AB POSITIVE Antibody Screen Negative Crossmatch See Detail BBK History Checked Patient has bt Assessment & Plan - Assessment and Plan (Free Text) Plan: Mr. 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
[2018-10-23 10:47] LABS: MEAN CELL VOLUME 89.8 fl (80.0-105.0); MEAN CORPUSCULAR HEMOGLOBIN 28.1 pg (25.0-35.0); MEAN CORPUSCULAR HGB CONC 31.3 g/dl (31.0-37.0); PLATELET COUNT 103 10^3/uL (120.0-450.0); RBC 2.85 10^6/uL (3.5-6.1); RED CELL DISTRIBUTION WIDTH 19.9 % (11.5-14.5)
[2018-10-23 10:56] LABS: WHITE BLOOD COUNT 31.7 10^3/uL (4.5-11.0)
[2018-10-23 13:45] VITALS: O2SAT 96
--- NOTE | 2018-10-23 16:03 | CARD ---
APPROVED REPORT Date of service: 10/22/2018 EKG Measurement Heart [id number] <Conclusion> Sinus tachycardia NSSTW changes
[2018-10-23] MEDS ORDERED: Pantoprazole 40 mg EC Tab PO SCH (16:30)
[2018-10-23] MEDS ORDERED: Potassium Chloride 20 mEq ER Tab PO ONE (17:30)
[2018-10-23] MEDS ORDERED: Enoxaparin 60 mg Syringe SC SCH ×2 (18:00)
[2018-10-23] MEDS ORDERED: Influenza Vaccine 60 mcg/0.5 mL SYR (4YR UP) IM ONE (18:41)
[2018-10-23 19:05] LABS: HEMOGLOBIN 9.8 g/dL (14.0-18.0); MEAN CELL VOLUME 90.1 fl (80.0-105.0); MEAN CORPUSCULAR HEMOGLOBIN 28.5 pg (25.0-35.0); MEAN CORPUSCULAR HGB CONC 31.6 g/dl (31.0-37.0); PLATELET COUNT 87 10^3/uL (120.0-450.0); RBC 3.44 10^6/uL (3.5-6.1); RED CELL DISTRIBUTION WIDTH 19.6 % (11.5-14.5)
[2018-10-23 19:09] VITALS: BP 137/87; RESP 18
[2018-10-23 19:09] LABS: WHITE BLOOD COUNT 31.9 10^3/uL (4.5-11.0)
[2018-10-23 19:12] VITALS: PULSE 96; TEMP 98
--- NOTE | 2018-10-23 21:01 | CON ---
DATE: 10/23/2018 SERVICE: Cardiology. REASON FOR CONSULTATION: Positive troponin, cardiac evaluation, history of adenocarcinoma of gastrointestinal tract with metastasis, severe anemia. BRIEF CLINICAL HISTORY This is a 43-year-old male with past medical history significant for adenocarcinoma of gastroesophageal junction with metastasis to the liver who came yesterday to see Dr. Gomez's office complaining of shortness of breath, hemoglobin found to be 5, so the patient to the ER. The patient got 2 units of blood, first troponin was 0.1 and the repeat was 1.16. Cardiology consult was called. PAST MEDICAL HISTORY: Significant for bilateral DVT on Lovenox, history of anemia, past history significant for adenocarcinoma of gastroesophageal junction with metastasis to the liver, history of anemia, history of multiple packed RBC transfusion in the past, history of DVT/PE, and history of taking Lovenox 70 b.i.d. SOCIAL HISTORY: Denies smoking. Denies any history of alcohol abuse. CURRENT MEDICATIONS: The patient is on Lyrica 25 mg, Protonix 40 mg, oxycodone, multivitamin, Lovenox, and acetaminophen. ALLERGIES: ALLERGY TO GLUE USED WITH THE PICC LINE. REVIEW OF SYSTEMS: As per HPI. FAMILY HISTORY: No history significant for coronary artery disease. PHYSICAL EXAMINATION: VITAL SIGNS: Height of the patient 5 feet 8 inches, weight of the patient 138 pounds, body mass index 20 kg/m2. Heart rate 100 and blood pressure 120/75. HEENT: PERRLA. Extraocular muscles are intact. NECK: Supple. No carotid bruit or thyromegaly. CHEST: Clear to auscultation. HEART: S1 and S2 regular. ABDOMEN: Soft. EXTREMITIES: Clubbing and cyanosis, negative. LABORATORY DATA: WBC 31.6, hemoglobin 8, hematocrit 25.6, and platelet count 103. Chemistry shows sodium 134, potassium 4, chloride 100, carbon dioxide 24, anion gap 11, BUN 70, creatinine 0.7. Phosphorus 2.4. Initial troponin 0.14, repeat 1.16. Admitting hemoglobin 5.9, after packed red unit 8. EKG sinus tachycardia, no acute nonspecific ST-T changes noted. IMPRESSION: A 43-year-old male with past medical history significant for adenocarcinoma at the gastroesophageal junction status post metastasis, history of deep venous thrombosis, pulmonary embolism was on Lovenox, admitted with severe anemia, history of packed red blood cells transfusion. Denies any chest pain, shortness of breath, any palpitations. Positive troponin. RECOMMENDATIONS: Since the patient has severe anemia, asymptomatic, followup the trend of the troponin, we will closely monitor lipid profile, TSH, hemoglobin A1c. We will get echo to assess LV function. We will follow with you. Since the patient is asymptomatic, I will treat medically for now, but will follow and follow the trend. Kei Guidry MD
--- NOTE | 2018-10-23 21:48 | DS ---
DISCHARGE SUMMARY FROM OBSERVATION For Dr. Gomez. SUBJECTIVE: The patient is a 43-year-old male with known adenocarcinoma of the gastroesophageal junction with mets to the liver, now status post transfusion of 3 units of packed red blood cells with elevated troponin evaluated by Cardiology, Dr. Guidry with the patient now feeling stronger, requests discharge to home with the patient otherwise reporting he is hungry and in no acute distress. Once referred to visit earlier today with Dr. Guidry, whom I spoke with on the telephone who is satisfied that the patient may be discharged home with further testing including an echocardiogram as an outpatient. He will finish getting his third unit of packed red blood cells with additional Lasix and a CBC to be done posttransfusion with the patient to be discharged home on his current medical regimen with follow up early next week with Dr. Gomez in the office for resumption of his treatment as indicated. OBJECTIVE/PHYSICAL EXAMINATION: VITAL SIGNS: Temperature 97.6, pulse 99, respirations 18, blood pressure 127/70, and pulse ox 96%. HEART: Regular rate. LUNGS: Clear. ABDOMEN: Soft. EXTREMITIES: Faint +1 edema to the left lower extremity. NEUROLOGIC: Awake and alert. LABORATORY DATA: The patient's labs were done white blood cell count of 31.7 after recent treatment with Neupogen; hemoglobin of 8.0, on repeat 5.9, on admission yesterday status post transfusion of 2 units of packed cells with the third unit now to be completed. His metabolic panel showed a sodium of 131, with a potassium of 4.0, with an AST of 103, troponin of 0.14 with repeat of 1.16, which was evaluated by Dr. Guidry who reports this may be the result of demand ischemia with the low hemoglobin, which is now since been corrected. DISCHARGE MEDICATIONS: The patient's medicines at this time include Lovenox, Tylenol p.r.n., Percocet for severe pain, Protonix, Lyrica, and multivitamin. ASSESSMENT: For this patient is that of symptomatic anemia, adenocarcinoma of the gastroesophageal junction, stage IV metastasis to the liver, history of deep venous thrombosis with vena cava filter. DISCHARGE PLAN: The plan for this patient is to be transfused third unit of packed red blood cells today with a CBC done afterwards with Lasix to be given as per Dr. Guidry along with potassium. He is then requested to follow up as an outpatient with Dr. Guidry, Cardiology for echocardiogram and further testing as indicated and to continue with Dr. Gomez for his continued chemotherapy with underlying disease process next week. Should the patient decompensate, he is requested to come back to emergency room 24 hours day or night. Otherwise, to follow up as above. This is a complex patient with comprehensive medically necessary and appropriate visit carried out in excess of 40 minutes with conversation held with Dr. Guidry with the patient and his sister along with nursing and Dr. Dillon, resident. Jasmeet Kidd MD
== END 2018-10-23 18:30 | disposition home or self-care (01) ==
LOC: ED 19:33 → ERH 20:07 → UNDOADMOB 20:07 → ERH 10-23 17:03
DX: D64.9 Anemia, unspecified (principal); C79.9 Secondary malignant neoplasm of unspecified site; F17.290 Nicotine dependence, other tobacco product, uncomplicated; C78.7 Secondary malignant neoplasm of liver and intrahepatic bile duct
CPT/HCPCS: 36430; 71045; 80053; 83735; 84100; 84484; 85025; 85027; 85610; 85730; 86850; 86900; 86920; 93005; 99283; J1720; J1940; J7040; P9016

== ENCOUNTER 2018-10-29 08:50 | Outpatient (CLI) | payer OTHER | END 2018-10-29 08:51 | disposition home or self-care (01) | LOC: RAD 08:50 ==

== ENCOUNTER 2018-10-29 12:05 | Outpatient (CLI) | payer OTHER | END 2018-10-29 12:06 | disposition home or self-care (01) | LOC: OPLAB 12:05 ==

== ENCOUNTER 2018-11-05 16:04 | Outpatient (CLI) | payer OTHER | END 2018-11-05 16:05 | disposition home or self-care (01) | LOC: OPLAB 16:04 | DX: D64.9 Anemia, unspecified (principal); E78.5 Hyperlipidemia, unspecified; E83.40 Disorders of magnesium metabolism, unspecified; M81.0 Age-related osteoporosis without current pathological fracture ==

== ENCOUNTER 2018-11-12 17:43 | Outpatient (CLI) | payer OTHER | END 2018-11-12 17:44 | disposition home or self-care (01) | LOC: OPLAB 17:43 ==

== ENCOUNTER 2018-11-13 17:42 | Outpatient (CLI) | payer OTHER | END 2018-11-13 17:43 | disposition home or self-care (01) | LOC: OPLAB 17:42 ==